=== PATIENT | female | born 1995 | race Two or more races ===

== ENCOUNTER 2024-09-14 18:08 | Emergency (ER) | payer BC, MEDICAID, SELFPAY ==
[2024-09-14 18:08] VITALS: BMI 26.2
[2024-09-14 18:18] VITALS: BP 122/79; PULSE 99; RESP 16; TEMP 37.6; O2SAT 98; BMI 25.4
--- NOTE | 2024-09-14 18:23 | XR_ITS ---
Examination: OB Transvaginal ultrasound of the pelvis, complete Technique: Transvaginal sonographic images pelvis performed using mclain scale imaging Exam date and time: September 14, 2024 1958 hrs. Indications: 7 week by history with vaginal bleeding and pelvic cramping today. Findings: Uterus 10.0 x 5.0 x 6.8 cm pole 0.8 cm corresponds to 6 week 6 day gestational age Cardiac motion 150 BPM Ovaries obscured by bowel gas Impression: Viable intrauterine gestation 6 weeks 6 days, no subchorionic hemorrhage
--- NOTE | 2024-09-14 18:23 | PD.EDRME ---
Rapid Medical Screening Exam [facility] Arrival date/time: 09/14/24 18:08 29F at approximately 7 weeks and with no significant PMH presents to ED with 1 day of pelvic cramping and vaginal bleeding. Chief Complaint: Vaginal Bleeding Vital signs: Vital Signs Temperature 99.6 F 09/14/24 18:18 Pulse Rate 99 09/14/24 18:18 Respiratory Rate 16 09/14/24 18:18 Blood Pressure 122/79 09/14/24 18:18 Pulse Oximetry (%) 98 09/14/24 18:18 Oxygen Delivery Method Room Air 09/14/24 18:18
[2024-09-14 18:38] LABS: Basophils # (Auto) 0.1 Thou/mm3 (0.0-0.2); Basophils % (Auto) 1 % (0-2.5); Eosinophils # (Auto) 0.2 Thou/mm3 (0.0-0.5); Eosinophils % (Auto) 2 % (0-10); Hematocrit 36.6 % (36.0-46.0); Hemoglobin 12.4 g/dL (12.0-16.0); Immature Granulocytes % (Auto) 1 % (0-0); Immature Granulocytes Auto 0.05 Thou/mm3 (0.00-0.00); Lymphocytes # (Auto) 3.1 Thou/mm3 (1.0-4.8); Lymphocytes % (Auto) 28 % (10-50); Mean Corpuscular HGB Conc 33.9 g/dl (31.0-37.0); Mean Corpuscular Hemoglobin 28.6 pg (25.0-35.0); Mean Corpuscular Volume 85 fL (80-100); Monocytes # (Auto) 0.7 Thou/mm3 (0.0-0.8); Monocytes % (Auto) 7 % (0-12); Neutrophils # (Auto) 6.9 Thou/mm3 (1.8-7.7); Neutrophils % (Auto) 63 % (37-80); Nucleated Red Blood Cell % 0 /100 WBC (0); Platelet Count 326 Thou/mm3 (140-440); RDW Standard Deviation 43.9 fL (36.4-46.3); Red Blood Count 4.33 Miln/mm3 (4.00-5.20); White Blood Count 10.9 Thou/mm3 (3.6-11.0)
[2024-09-14 18:57] LABS: Alanine Aminotransferase 80 U/L (10-49); Albumin, Serum 4.7 gm/dL (3.5-5.0); Albumin/Globulin Ratio 1.7 (1.2-2.2); Alkaline Phosphatase 101 U/L (46-116); Anion Gap 7 (7-16); Aspartate Amino Transferase 58 U/L (0-34); BUN/Creatinine Ratio 9 Ratio (12-20); Bilirubin,Total 0.4 mg/dL (0.3-1.2); Blood Urea Nitrogen 6 mg/dL (9-23); Calcium 9.4 mg/dL (8.3-10.6); Calcium (Corrected) 9.4 mg/dL (8.5-10.1); Carbon Dioxide 24.1 mMol/L (20.0-31.0); Chloride 104 mMol/L (98-107); Creatinine (Component) 0.7 mg/dL (0.6-1.3); Estimated Creatinine Clearance 106.6 mL/min (>60); Globulin 2.8 gm/dL (2.3-3.5); Glucose 112 mg/dL (74-106); Osmolality,Calculated 268 (275-295); Potassium 3.8 mMol/L (3.4-5.1); Sodium 135 mMol/L (136-145); Total Protein 7.5 gm/dL (5.7-8.2); eGFR > 60 See Note
[2024-09-14 19:35] LABS: Collection Type, Urine Clean Catch
[2024-09-14 19:50] LABS: Beta HCG,Quantitative 57880 mIU/mL (<5.0)
[2024-09-14 20:02] LABS: Bilirubin,Urine Negative (Negative); Blood,Urine 3+ (Negative); Clarity,Urine Clear (Clear/Hazy); Color,Urine Colorless (Lt Yel-Yel); Glucose, Urine Negative (Negative); Ketones,Urine Negative (Negative); Leukocyte Esterase,Urine Negative (Negative); Nitrite,Urine Negative (Negative); PH,Urine 6.5 (5.0-7.0); Protein,Urine Negative (Neg - Trace); RBC,Urine 251 /hpf (0-3); Squamous Epithelial Cell,Urine 1 /hpf (0-5); Urobilinogen,Urine Negative mg/dL (0.0-1.0); WBC,Urine 14 /hpf (0-5)
[2024-09-14 20:04] LABS: Sperm,Urine Present
--- NOTE | 2024-09-14 21:24 | PD.EDVAGBL ---
ED OB Contraction Preg RMI/HPI General Chief complaint: Vaginal Bleeding Stated complaint: 7WKS PREG, VAG BLEED Time Seen by Provider: 09/14/24 18:25 Arrival date/time: 09/14/24 18:08 RME / HPI RME / HPI Narrative: 29-year-old female patient 5 para 2 2, about 7 weeks , came in for evaluation regarding vaginal bleeding. Onset of symptoms 4 PM today, severity of symptoms mild, patient only change 1 pad. Patient denies any pelvic pain. Denies any dizziness denies any other complaints no medications taken prior to arrival. Related Data Home Medications ?Medication ?Instructions ?Recorded ?Confirmed amitriptyline 25 mg tablet 25 mg PO HS 01/07/23 01/07/23 hydroxyzine HCl 25 mg tablet 25 mg PO DAILY 01/07/23 01/07/23 rizatriptan 10 mg tablet 10 mg PO Q2H PRN Pain 01/07/23 01/07/23 Allergies Allergy/AdvReac Type Severity Reaction Status Date / Time No Known Allergies Allergy Verified 09/14/24 18:10 Review of Systems Review of Systems Narrative Review of Systems: Review of system reviewed and within normal limits except mentioned in HPI ED Exam Narrative Physical exam: VITAL SIGNS: Reviewed. GENERAL APPEARANCE: Alert and interactive, follows commands, no acute distress, HEAD AND FACE: Non-traumatic. ENT: PERRL, pink conjunctivitis, eyelid no trauma, Mucous membrane moist. NECK: Supple, nontender, no nuchal rigidity. CHEST: No tenderness, no crepitus, no paradoxical movement, no retractions. LUNGS: Clear, well ventilated, symmetric, no rales, no wheezing, no ronchi, no stridor, good breath sounds bilaterally. HEART: Regular rate, regular rhythm, no murmur, no gallops. ABDOMEN: Soft, positive bowel sounds, nondistended, no guarding, nontender, no rebound, no masses, RECTAL: Deferred. GENITAL: Deferred. NEUROLOGICAL: Gross motor function intact sensory function intact, Appropriate for age. MUSCULOSKELETAL: low back nontender, full range of motion. EXTREMITIES: Nontender, full range of motion. SKIN: Color pink, dry, no rash, no lacerations, no abrasions, no contusions. LYMPHATICS: Deferred. Course Quality Measures none Orders Category Date Time Status US OB transvaginal Stat Exams 09/14/24 18:23 Taken ABO/RH Type Stat Lab 09/14/24 18:31 Completed Beta HCG,Quantitative Stat Lab 09/14/24 18:31 Completed CBC Stat Lab 09/14/24 18:31 Completed CMP [Comprehensive Metabolic Panel] Stat Lab 09/14/24 18:31 Completed UA [Urinalysis] Stat Lab 09/14/24 19:23 Completed Urine Culture Stat Lab 09/14/24 18:23 Received Vital Signs Vital signs: Vital Signs Temperature 99.6 F 09/14/24 18:18 Pulse Rate 99 09/14/24 18:18 Respiratory Rate 16 09/14/24 18:18 Blood Pressure 122/79 09/14/24 18:18 Pulse Oximetry (%) 98 09/14/24 18:18 Oxygen Delivery Method Room Air 09/14/24 18:18 Vaginal Bleeding MDM Narrative MDM Narrative: 29-year-old female patient 5 para 2 2, about 7 weeks , came in for evaluation regarding vaginal bleeding. Onset of symptoms 4 PM today, severity of symptoms mild, patient only change 1 pad. Patient denies any pelvic pain. Denies any dizziness denies any other complaints no medications taken prior to arrival. Laboratory workup all came back unremarkable. Patient ultrasound of the showed single live intrauterine about 7 weeks and 5 days old, heart rate of 153 bpm. Results discussed with the patient. Currently patient told me that her bleeding completely stopped prior to discharge. Patient data External records reviewed:: None Clinical information provided by:: none Social determinants that could affect healthcare access:: none Patient has the following chronic illnesses:: None How is presenting disease/condition affected by chronic disease/condition?: no chronic disease Evaluation data The following diagnostics were reviewed and interpreted by me:: lab results and radiology exam(s) Lab and/or radiology exams considered but not ordered:: None Interpretation Summary: Laboratory workup all came back unremarkable. Patient ultrasound of the showed single live intrauterine about 7 weeks and 5 days old, heart rate of 153 bpm Medications / Prescriptions Medications or Prescriptions considered but not ordered:: None Medication administrations:: None Consultations Consultation(s) initiated? (list below): No Diagnosis Vaginal Bleeding Differential Diagnosis: missed , threatened , incomplete and vaginal bleeding Most likely diagnosis given after review of the tests above:: Threatened Admission Indicated Admission indicated?: not indicated Admission Request Was there a request for admission?: No Disposition Plan Disposition Plan: Discharge Discharge Attestation Discharge Attestation: The patient was given an opportunity to ask questions and understood the discharge instructions. Discharge instructions specifically effects, indications for sooner follow up or return to the emergency department, and the expected course of current diagnosis. Patient condition: Stable Discharge Plan Plan Patient Disposition: HOME (Self Care) Disposition Comment: stable Prescriptions/Referrals Prescriptions/Med Rec: No Action rizatriptan 10 mg Tablet 10 mg PO Q2H PRN (Reason: Pain) Rx Instructions: do not exceed 3 doses per 24 hrs amitriptyline 25 mg Tablet 25 mg PO HS hydroxyzine HCl 25 mg Tablet 25 mg PO DAILY Referrals: Jacobo Dewey PA-C [Primary Care Provider] - In 1 week Problem List Clinical Impression: Threatened , Vaginal bleeding affecting early Patient/Caregiver Discharge Instructions Discharge Activity: activity as tolerated Education Materials: ED Possible Miscarriage ... Additional Instructions: Thank you for the opportunity for serving you today. You are stable for discharged . 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
[2024-09-14 21:28] VITALS: BP 118/72; PULSE 76; RESP 18; TEMP 36.7; O2SAT 99
== END 2024-09-14 21:29 | disposition home or self-care (01) ==
PROVIDERS: Physician Assistant; Emergency Provider Emergency Medicine; PCP Physician Assistant
DX: O20.0 Threatened abortion (principal); Z3A.01 Less than 8 weeks gestation of pregnancy
CPT/HCPCS: 36415; 76817; 80053; 81001; 84702; 85025; 86900; 86901; 87086; 99284

== ENCOUNTER 2024-12-05 12:14 | Inpatient (IN) | payer OTHER, MEDICAID, SELFPAY ==
[2024-12-05] VITALS (40 sets, daily range): BP systolic 80–130; BP diastolic 45–76; PULSE 82–105; RESP 12–19; TEMP 36.2–37.1; O2SAT 98–100; BMI 27.4
--- NOTE | 2024-12-05 14:11 | PD.EDPREG ---
ED OB Contraction Preg RMI/HPI General Chief complaint: OB/Uterine Contractions Stated complaint: 18 weeks OB, , leaking fluid Time Seen by Provider: 12/05/24 12:23 Arrival date/time: 12/05/24 12:14 RME / HPI RME / HPI Narrative: DR. BORGES MAIN ED EVALUATION: 29 year old female presents to the Emergency Department with complaints of palpitations and something moving inside her vagina. Patient is 18 weeks and 5 days ; 5, para 2, abortus 2. She states that 8 days ago, she was seen by Dr. Ott and had a bulging sac and sent to [facility] by Dr. Ott for placenta previa too; however at [facility] they told her she did not have placenta previa and discharged her home and talked about termination of . Today, she feels like something is stuck in her vaginal and like feels movement; she also has some leaking/ discharge but no vaginal bleeding. No fevers or chills. No contractions. No injury or other symptoms. Related Data Home Medications ?Medication ?Instructions ?Recorded ?Confirmed amitriptyline 25 mg tablet 25 mg PO HS 01/07/23 01/07/23 hydroxyzine HCl 25 mg tablet 25 mg PO DAILY 01/07/23 01/07/23 rizatriptan 10 mg tablet 10 mg PO Q2H PRN Pain 01/07/23 01/07/23 cephalexin 500 mg capsule mg 12/05/24 folic acid 1 mg tablet 1 mg PO QDAY 12/05/24 12/05/24 vitamin with calcium tab PO Q24H 12/05/24 no.72-iron 27 mg-folic acid 1 mg tablet (WesTab Plus) Allergies Allergy/AdvReac Type Severity Reaction Status Date / Time No Known Allergies Allergy Verified 12/05/24 17:06 Review of Systems Review of Systems Systems Reviewed: All systems reviewed, normal except as documented Narrative Review of Systems: GEN: No fever, no chills, no weight loss EYES: No discharge, no visual changes, no pain HEENT: No ear pain, no congestion, no sore throat PULM: No shortness of breath, no cough, no congestion CV: No chest pain, no dyspnea on exertion, + palpitations GI: No nausea, no vomiting, no diarrhea, no pain, no constipation : No frequency, no urgency and no dysuria + vaginal discharge/ something stuck (see HPI) MUSC/SKEL: No joint pain, no back pain SKIN: No rash PSYCH: No hallucinations, no depression HEME/LYMPH: No easy bleeding or bruising tendencies NEURO: No weakness, no headache Past Medical History Past Medical History NEUROLOGIC: Positive Neurological Disorders and Migraine REPRODUCTIVE: Positive Previous Pregnancies MUSCULOSKELETAL: Positive Carpal Tunnel Syndrome PSYCHO/SOCIAL: Positive Depression and Anxiety OTHER HISTORY: Positive Hospitalization and Blood Transfusions Family History FAMILY HISTORY: Positive Family Cardiac Disorders and Family Surgery Surgical History SURGICAL: Positive Section Social History SMOKING STATUS: Never smoker SUBSTANCE USE: does not use ALCOHOL: Never ED Exam Narrative Physical exam: Physical Exam:? General:?? ? The vital signs were reviewed. ? ? The patient is non-toxic, in no apparent distress and appears healthy with a patent airway, no respiratory distress and has no apparent circulatory problems. Head & Scalp:?? ? Normocephalic, atraumatic. Face:?? ? Appears normal and is without lesions, deformity. Ears:??? Left external pinna appears normal. ? ? Right external pinna appears normal. Eyes:?? ? The sclera is anicteric.? No obvious photophobia. ? ? The Left and Right Orbit/Lid/Conjunctiva appears normal without swelling, discoloration or injection. Nose: ? ? The nose is without deformity, discharge or tenderness; Throat: ? ? Appears normal.? The mucous membranes are pink and moist without exudates, redness or mass seen.? The tongue appears normal. Neck: The neck is supple and no apparent mass or adenopathy. Chest: The chest wall is normal in size and symmetry and has no chest wall tenderness or crepitus. ? ? The patient displays normal ventilator effort without retractions, accessory muscle use and has adequate air movement bilaterally with no wheezes and no rales. ? Cardiovascular: Regular rate and rhythm; No murmurs, rubs, or gallops; Gastrointestinal: The abdomen appears normal.? No obvious hernias or mass. The abdomen is soft and benign, non-distended, with no pain, no guarding and no rebound tenderness.? Bowel sounds are present and normal sounding.? No CVA tenderness. Genitourinary: Deferred to Dr. Ott. Back/Spine: Extremities/Musculoskeletal/lymphatic:? ? ? The bilateral upper and lower extremities are warm. There is no evidence of arterial? insufficiency. There is no evidence of venous insufficiency/edema. The patient spontaneously moves bilateral upper and lower extremities with no pain and no limitation of movement.? There is no apparent, injury or trauma. Skin:? The skin is warm, dry and intact.? No rashes. No petechia. No purpura. No abnormal bruising.? The color is appropriate with no cyanosis. Mental status/Psychiatric: Mental status is appropriate for age. The patient has no apparent delusions, visual hallucinations, no apparent audible hallucinations. The patient has no apparent suicidal thoughts/ideation and no apparent homicidal thoughts/ideation. Neurological:? The patient is awake, alert, interactive, cordial, cooperative and is oriented to name and situation. The patient follows commands and answers historical question with no impairment.?? There is no visual disturbance apparent.? The pupils are equal and reactive bilaterally with normal eye movements and no diplopia The bilateral upper and lower extremities have normal strength, normal range of motion and normal functioning. The gait, station and balance appears? to be baseline with no acute change Course Quality Measures none Orders Category Date Time Status US OB >= 14 weeks Fetus Stat Exams 12/05/24 15:17 Completed CBC Stat Lab 12/05/24 15:35 Completed Comprehensive Metabolic Panel Stat Lab 12/05/24 15:35 Completed PT [Prothrombin Time with INR] Stat Lab 12/05/24 15:35 Completed PTT [Partial Thromboplastin Time] Stat Lab 12/05/24 15:35 Completed Red Blood Cells Stat Lab 12/05/24 15:35 Results Type and Screen Stat Lab 12/05/24 15:35 Results Sodium Chloride 0.9% 1000 ml [Ns] 1,000 ml Med 12/05/24 15:30 Active IV 150 mls/hr Vital Signs Vital signs: Vital Signs Temperature 98.7 F 12/05/24 12:31 Pulse Rate 103 H 12/05/24 12:31 Respiratory Rate 18 12/05/24 12:31 Blood Pressure 119/73 12/05/24 12:31 Pulse Oximetry (%) 98 12/05/24 12:31 Oxygen Delivery Method Room Air 12/05/24 12:31 OB/Uterine Contractions MDM Narrative MDM Narrative:: I, Sharda Jarrett am scribing for and in the presence of Dr. Borges. The patient 29-year-old whose 18 weeks 5 days by recent ultrasound who has a threatened second trimester now has a feeling of something in her vaginal vault moving and comes in by request of her OB Dr. Dr Ott. Patient has no fever vomiting no pain no contractions is aware that she is about to have a miscarriage. After initial evaluation I went and called Dr Ott who stated that the patient was to be admitted straight to OB that he made a special request for that to happen even though she is under 20 weeks. Later they called back stating that OB was quite busy and that we would get the labs started down in the ER which were then done and the white count came back at 13,000 hemoglobin 11.1. PT/INR within normal limits electrolytes sodium 135 otherwise negative. BUN 5 creatinine 0.5. She is O+. Ultrasound came down to the department found that the there is no amniotic fluid the legs are in the vaginal cervix and heart beats proximal 173. Patient then later went up to OB for further care by Dr Ott. Note that he plan to do the pelvic exam and that was deferred to him. Patient data External records reviewed:: [facility] [place] previous records (Reviewed last ED visit dated 09/14/24, discharged with the following: Threatened ) Clinical information provided by:: patient and spouse Social determinants that could affect healthcare access:: none Patient has the following chronic illnesses:: Denies any PMHx, surgeries, daily medications, or known allergies. Patient is 18 weeks and 5 days ; 5, para 2, abortus 2. How is presenting disease/condition affected by chronic disease/condition?: no chronic disease Evaluation data The following diagnostics were reviewed and interpreted by me:: other (specify) (none) Lab and/or radiology exams considered but not ordered:: none Interpretation Summary: See above under MDM narrative. RADIOLOGY Procedure(s): US OB >= 14 weeks Fetus Accession Number(s): [id number] cc: Chemo Borges MD; Deshaun Contreras MD; NO PRIMARY/FAMILY,PHYSICIAN~ Examination: Complete OB ultrasound greater than 14 weeks Date and time of exam: December 05, 2024 1538 hours INDICATIONS: Premature rupture of membranes December 01, 2024, leaking amniotic fluid beginning 5 days ago Findings: Viable intrauterine single fetus with single amniotic sac presentation breech, legs in the cervix Cardiac motion 173 BPM Placenta anterior grade 2 Umbilical cord seen No amniotic fluid spine maternal left Cervix 4.6 cm (with bilateral legs in the cervix Ovaries obscured by bowel gas. Composite estimated gestational age based on BPD, head circumference, abdominal circumference, femur length is 17 weeks 6 days Estimated weight 219 g. Survey of intracranial anatomy, spinal anatomy, abdominal anatomy, four-chamber heart performed with no abnormalities identified. Impression: Viable intrauterine gestation breech presentation, legs in the cervix No amniotic fluid. Dictated By: Deshaun Contreras MD Medications / Prescriptions Medications or Prescriptions considered but not ordered:: none Medication administrations:: Medication Administration History Benzocaine (Benzo/Lano/Aloe (Dermoplast) 60 Gm Can) 1 spray TOP PRN PRN PRN Reason: PERINEAL DISCOMFORT Stop: 01/04/25 15:57 Fentanyl Citrate (Fentanyl Cit Inj 50 Mcg/Ml Amp 2ml) 50 mcg IVP Q1HR PRN PRN Reason: PAIN SCALE 4-6 (Moderate Stop: 12/10/24 15:57 Fentanyl Citrate (Fentanyl Cit Inj 50 Mcg/Ml Amp 2ml) 100 mcg IV Q2HR PRN PRN Reason: PAIN SCALE 7-10 (Severe Stop: 12/10/24 15:57 Sodium Chloride (Ns) 1,000 mls @ 150 mls/hr IV .Q6H40M [facility] Stop: 01/04/25 15:29 Tranexamic Acid (Tranexamic Acid Ivpb) 1,000 mg in 100 mls @ 200 mls/hr IV [id number] PRN PRN Reason: BLEEDING Oxytocin/Sodium Chloride (Pitocin 20 Units In Ns) 20 unit in 1,000 mls @ 125 mls/hr IV .Q8H [facility] Stop: 01/04/25 15:59 Sodium Chloride (Ns) 1,000 mls @ 100 mls/hr IV .Q10H [facility] Stop: 01/04/25 15:59 Last Admin: 12/05/24 16:42 Dose: 100 mls/hr Documented By: ML Ampicillin Sodium 2,000 mg/ (Sodium Chloride) 100 mls @ 100 mls/hr IV Q6HR [facility] Stop: 12/12/24 17:29 Last Admin: 12/05/24 17:29 Dose: 100 mls/hr Documented By: ML Azithromycin 500 mg/ Sodium (Chloride) 250 mls @ 250 mls/hr IV QDAY [facility] Stop: 12/12/24 17:20 Last Admin: 12/05/24 18:09 Dose: 250 mls/hr Documented By: ML Methylergonovine Maleate (Methylergonovine Inj 0.2 Mg/Ml Vial) 0.2 mg IM X1 PRN PRN Reason: Excessive Bleeding Misoprostol (Misoprostol 200 Mcg Tablet) 800 mcg MD X1 PRN PRN Reason: BLEEDING Oxytocin (Oxytocin Inj 10 Unit/Ml Vial) 10 unit IM X1 PRN PRN Reason: After placenta delivers Sumatriptan Succinate (Sumatriptan 25 Mg Tablet) 25 mg PO Q2HR PRN PRN Reason: HEADACHE (MIGRAINE) Stop: 01/04/25 17:11 Last Admin: 12/05/24 17:27 Dose: 25 mg Documented By: ML Discontinued Medications Ibuprofen (Ibuprofen Tab 400 Mg Tablet) 800 mg PO X1 ONE Stop: 12/05/24 15:59 Misoprostol (Misoprostol 200 Mcg Tablet) 400 mcg VAGINAL X1 ONE Stop: 12/05/24 17:12 Last Admin: 12/05/24 19:50 Dose: 400 mcg Documented By: MAR see above if any Consultations Consultation(s) initiated? (list below): Yes Consultation #1 (Physician, Specialty, Details): Discussed test HPI, PMHx, lab, radiology results and/or management with Dr. Ott. Dr. Ott recommended to send the patient to OB unit that they are waiting for her. Time: 14:40 Consultation #2 (Physician, Specialty, Details): Discussed case with Dr. Ott. Dr. Ott spoke to OB unit charge nurse, they are busy so OB unit will be delayed for now; we are going to do orders in ED and wait to take her upstairs to OB unit when there is a room. Time: 15:20 Diagnosis OB Contractions Differential Diagnosis: premature labor, pre-eclampsia and other (palpitations, sepsis) Most likely diagnosis given after review of the tests above:: As noted below. Admission Indicated Admission indicated?: indicated Explain why admission is indicated or not indicated:: To the OB unit Admission Request Was there a request for admission?: Yes Admission Attestation Admission request attestation: Discussed case with [] from Hospitalist service regarding admission. Discussed patients ED course, exam findings, labs, and radiology results. The Hospitalist [agrees,declines] to accept the patient for admission. Disposition Plan Disposition Plan: Admit Discharge Plan Plan Patient Disposition: Admit Acute Care w/in Hospital Problem List Clinical Impression: Premature labor in second trimester, Premature rupture of membranes
--- NOTE | 2024-12-05 15:17 | XR_ITS ---
Examination: Complete OB ultrasound greater than 14 weeks Date and time of exam: December 05, 2024 1538 hours INDICATIONS: Premature rupture of membranes December 01, 2024, leaking amniotic fluid beginning 5 days ago Findings: Viable intrauterine single fetus with single amniotic sac presentation breech, legs in the cervix Cardiac motion 173 BPM Placenta anterior grade 2 Umbilical cord seen No amniotic fluid spine maternal left Cervix 4.6 cm (with bilateral legs in the cervix Ovaries obscured by bowel gas. Composite estimated gestational age based on BPD, head circumference, abdominal circumference, femur length is 17 weeks 6 days Estimated weight 219 g. Survey of intracranial anatomy, spinal anatomy, abdominal anatomy, four-chamber heart performed with no abnormalities identified. Impression: Viable intrauterine gestation breech presentation, legs in the cervix No amniotic fluid.
[2024-12-05 15:46] LABS: Basophils % (Auto) 0 % (0-2.5); Eosinophils % (Auto) 0 % (0-10); Hematocrit 32.7 % (36.0-46.0); Hemoglobin 11.1 g/dL (12.0-16.0); Immature Granulocytes % (Auto) 1 % (0-0); Immature Granulocytes Auto 0.11 Thou/mm3 (0.00-0.00); Lymphocytes % (Auto) 15 % (10-50); Mean Corpuscular HGB Conc 33.9 g/dl (31.0-37.0); Mean Corpuscular Hemoglobin 30.1 pg (25.0-35.0); Mean Corpuscular Volume 89 fL (80-100); Monocytes # (Auto) 0.5 Thou/mm3 (0.0-0.8); Monocytes % (Auto) 4 % (0-12); Neutrophils # (Auto) 10.3 Thou/mm3 (1.8-7.7); Neutrophils % (Auto) 80 % (37-80); Nucleated Red Blood Cell % 0 /100 WBC (0); Platelet Count 314 Thou/mm3 (140-440); RDW Standard Deviation 44.2 fL (36.4-46.3); Red Blood Count 3.69 Miln/mm3 (4.00-5.20)
[2024-12-05 16:03] LABS: Alanine Aminotransferase 44 U/L (10-49); Albumin, Serum 4.1 gm/dL (3.5-5.0); Albumin/Globulin Ratio 1.3 (1.2-2.2); Alkaline Phosphatase 134 U/L (46-116); Anion Gap 11 (7-16); Aspartate Amino Transferase 42 U/L (0-34); BUN/Creatinine Ratio 10 Ratio (12-20); Bilirubin,Total 0.3 mg/dL (0.3-1.2); Blood Urea Nitrogen 5 mg/dL (9-23); Calcium 9.3 mg/dL (8.3-10.6); Calcium (Corrected) 9.3 mg/dL (8.5-10.1); Carbon Dioxide 23.1 mMol/L (20.0-31.0); Chloride 101 mMol/L (98-107); Creatinine (Component) 0.5 mg/dL (0.6-1.3); Estimated Creatinine Clearance 148.8 mL/min (>60); Globulin 3.1 gm/dL (2.3-3.5); Glucose 123 mg/dL (74-106); Osmolality,Calculated 268 (275-295); Potassium 3.5 mMol/L (3.4-5.1); Sodium 135 mMol/L (136-145); Total Protein 7.2 gm/dL (5.7-8.2); eGFR > 60 See Note
--- NOTE | 2024-12-05 16:05 | PD.LDHP ---
Documentation for date of: 12/05/24 OB Labor/Induct. HPI History of Present Illness History of sections: Yes History of present illness: Dictated on STAT line #9 in [employer]: [id number] Past Medical History Surgical History SURGICAL: Positive Section Meds Home Medications and Allergies Home Medications ?Medication ?Instructions ?Recorded ?Confirmed ?Type amitriptyline 25 mg tablet 25 mg PO HS 01/07/23 01/07/23 History hydroxyzine HCl 25 mg tablet 25 mg PO DAILY 01/07/23 01/07/23 History rizatriptan 10 mg tablet 10 mg PO Q2H PRN Pain 01/07/23 01/07/23 History Allergies Allergy/AdvReac Type Severity Reaction Status Date / Time No Known Allergies Allergy Verified 12/05/24 12:19 OB Exam Physical Exam Vital signs: Temp Pulse Resp BP Pulse Ox O2 Del Method 98.3 F 96 16 117/68 98 Room Air 12/05/24 14:47 12/05/24 14:47 12/05/24 14:47 12/05/24 14:47 12/05/24 14:47 12/05/24 14:47 OB Results Labs 12/05/24 15:35 12/05/24 15:35 Labs: Short CBC 12/05/24 Range/Units 15:35 WBC 13.0 H (3.6-11.0) Thou/mm3 Hgb 11.1 L (12.0-16.0) g/dL Hct 32.7 L (36.0-46.0) % Plt Count 314 (140-440) Thou/mm3 BMP 12/05/24 15:35 Sodium 135 L Potassium 3.5 Chloride 101 Carbon Dioxide 23.1 BUN 5 L Creatinine 0.5 L Glucose 123 H Calcium 9.3 Liver Function 12/05/24 Range/Units 15:35 Total Bilirubin 0.3 (0.3-1.2) mg/dL AST 42 H (0-34) U/L ALT 44 (10-49) U/L Alkaline Phosphatase 134 H (46-116) U/L Albumin 4.1 (3.5-5.0) gm/dL
[2024-12-05 16:14] LABS: Partial Thromboplastin Time 26.3 Seconds (22.0-36.0); Prothrombin Time 10.6 Seconds (9.0-12.2)
--- NOTE | 2024-12-05 16:17 | PC.NURSE ---
Report given kenny Sewell RN in OB.
[2024-12-05] MEDS: SODIUM CHLORIDE 0.9% 1000 ML 1,000 ML 100 ML IV (16:42)
--- NOTE | 2024-12-05 17:16 | PD.LDPN ---
Documentation for date of: 12/05/24 OB Labor Progress Note Pain Control Comments: Migraine headache desires sumatriptan Pelvic Exam Comments: See H and P Assessment and Plan Comments: Inevitable at 18 weeks nonviable fetus. Oligohydramnios PPROM Elevated WBC Prior C/S Discussed options: Expectant Management v. Misoprostal to induce labor and delivery. Discussed low risk of uterine rupture with Misoprostal vaginally at 18 weeks and patient agrees to receive Misoprostal.
[2024-12-05] MEDS: SUMAtriptan 25 MG TABLET PO (17:27)
[2024-12-05] MEDS: Ampicillin Inj 2,000 MG in SODIUM CHLORIDE 0.9% (P) 100 ML 100 MG IV (17:29)
[2024-12-05] MEDS: AZITHROMYCIN INJ 500 MG in SODIUM CHLORIDE 0.9% 250 ML 250 ML 250 MG IV (18:09)
[2024-12-05] MEDS: MISOPROSTOL 200 mCg TABLET 400 MCG VAGINAL (19:50)
--- NOTE | 2024-12-05 23:24 | SUR.PHASEI ---
2324: Pt. AAOx4, vitals stable, breathing unlabored, no complaint of pain or nausea, vaginal packing in place, ABD Pad in place with minimal amount of blood, report received from MD [employer] [facility].
[2024-12-05] MEDS: ACETAMINOPHEN IVPB 1,000 MG/100 ML VIAL 250 MG IV (23:37)
[2024-12-05] MEDS: fentaNYL CIT INJ 50 mCg/ML AMP 2ML 25 MCG IVP (23:54)
--- NOTE | 2024-12-05 23:54 | PD.GYNPROC ---
Operative Note - CODE AND TEST CLERK Procedure Date of procedure: 12/05/24 Procedure Performed: Uterine curettage Packing of uterus with Curlex roll Indication: Retained placenta Pre-Op diagnosis: Retained placenta Post-Op diagnosis: Retained placenta Anesthesia type: General Procedure description: Uterine curettage Placement of Curlex roll for uterine packing Fluids: crystalloid and blood Specimen: other Estimated blood loss (ml): 500 Findings: Retained placenta Complications: none Narrative: After delivery of nonviable 18-week fetus the patient was observed for 30 minutes and the placenta did not deliver. Her bleeding became excessive after 30 minutes and she became hypotensive and tachycardic and was rushed to the operating room where she was placed in the supine position on the operating room table and she underwent induction of general anesthesia she was then placed in the dorsolithotomy position she was prepped and draped the cervix was dilated 5 cm. Using the banjo curette uterine cavity was curetted and the placenta came out and pieces. After the uterine cavity curetted cleanly without any remaining products of conception the uterus was packed with Kerlix roll. She received Pitocin, Methergine and TXA. She received a unit of packed red blood cells intraoperatively. Plan is to transfuse the second unit in the postanesthesia care unit. She was reversed from general anesthesia in the supine position and transferred to the recovery room in stable condition she tolerated the procedure well counts were correct. I discussed with the patient's family the intraoperative findings expectation for recovery all questions answered and dictation Dr. Barrett thank for much Surgical staff Anesthesiologist Dr Bell Operation Date: 12/05/24 23:30 <No data on this case meets the specified criteria> Diagnosis Discharge Diagnosis (1) Retained products of conception after miscarriage: Status: Acute Problem List Completed Was Problem List Reviewed/Reconciled?: Yes
[2024-12-06] VITALS (16 sets, daily range): BP systolic 90–104; BP diastolic 54–68; PULSE 74–90; RESP 16–20; TEMP 36.2–37.5; O2SAT 97–99
--- NOTE | 2024-12-06 00:06 | PD.LDDS ---
DS: Providers Provider Date of admission: 12/05/24 15:58 Primary care physician: Physician No Primary/Family Admitting Provider: Angel Ott MD Attending Provider on Admission: Angel Ott MD Attending Provider on DC: Angel Ott MD Discharging Provider: Angel Ott MD DS: Diagnosis Problem List Completed Was Problem List Reviewed/Reconciled?: Yes Summary/Hosp Course Brief History: Dictated on STAT line #9 in [employer]: [id number] Peripartum Data Procedures: Procedures Operation Date: 12/05/24 23:30 <No data on this case meets the specified criteria> Time Spent with Patient Time attestation: Total time spent providing and/or coordinating discharge services: Exam Vital Signs Temp Pulse Resp BP Pulse Ox O2 Del Method O2 Flow Rate 97.2 F 90 19 104/59 L 99 Room Air 4 12/05/24 23:58 12/05/24 23:58 12/05/24 23:58 12/05/24 23:58 12/05/24 23:58 12/05/24 20:30 12/05/24 23:43 Discharge Plan Plan Patient Disposition: HOME (Self Care) Patient condition on transfer: Stable Prescriptions/Referrals Prescriptions/Med Rec: Continued rizatriptan 10 mg Tablet 10 mg PO Q2H PRN (Reason: Pain) Rx Instructions: do not exceed 3 doses per 24 hrs amitriptyline 25 mg Tablet 25 mg PO HS hydroxyzine HCl 25 mg Tablet 25 mg PO DAILY WesTab Plus 27 mg iron- 1 mg tablet PO Q24H Patient Comments: take 1 tablet by mouth once daily Discontinued cephalexin 500 mg capsule Patient Comments: take 1 capsule by mouth four times a day for 7 days folic acid 1 mg tablet 1 mg PO QDAY Patient Comments: take 1 tablet by mouth once daily Referrals: No Primary/Family,Physician [Primary Care Provider] - Patient/Caregiver Discharge Instructions Discharge Activity: activity as tolerated Other Discharge Activity Instructions:: Follow up office 1 week. Print Language: Estonian Stand Alone Forms: [facility] Award Info., Patient Portal Info Letter Discharge Order Discharge Orders: Discharge (Routine); Ordered 12/07/24 Ordered By: Angel Ott Planned Discharge Date 12/07/24
--- NOTE | 2024-12-06 00:23 | SUR.PHASEI ---
0023: Pt. AAOx4, vitals stable, breathing unlabored, complaint of pain 2/10, pt. states pain is tolerable, no complaint of nausea, peripad in place with minimal blood, bocanegra catheter in place draining clear yellow urine, pt. tolerated bites of ice chips well, gave report to Denae MELTON prior to transfer to room 460. Per MD Ott, have 2U more PRBC on standby, but do not give tonight. 2 units of PRBC Transfused in OR/PACU, 2 units PRBC left (but on standby)
--- NOTE | 2024-12-06 00:43 | PC.NURSE ---
0025: PATIENT ARRIVED TO L&D UNIT ROOM 460 FROM MAIN OR, PACU X1HOUR. PATIENT AWAKE ALERT ORIENTED
[2024-12-06] MEDS: OXYTOCIN in NS 20 units 20 UNIT/1,000 ML BAG 125 UNIT IV (01:43)
[2024-12-06] MEDS: IBUPROFEN TAB 400 MG TABLET 800 MG PO ×2 (02:17→18:46)
--- NOTE | 2024-12-06 02:46 | PC.NURSE ---
2148: Demise, male born via , HR:0, RR:0, wrapped x1 baby blanket, transferred to mother chest. 2153: : 0/0 5: Male, transferred to [facility] d/t mother reporting she did not feel good. 2315:Male, in [facility], measurements and weight performed. Length: 8.75in, Head:12.75cm, Chest:12.25cm, Abdomen: 12cm, Weight: 215gm. 2323: [facility] called, notified of demise/ male born via , spoke to Zoran Gracia, ZHEN#[id number]
[2024-12-06] MEDS: METHYLERGONOVINE 0.2 MG TABLET PO ×2 (06:04→14:40)
[2024-12-06] MEDS: ceFAZolin 2 GM in SODIUM CHLORIDE 0.9% 100 ML IV (06:06)
[2024-12-06 06:07] LABS: Basophils % (Auto) 0 % (0-2.5); Eosinophils % (Auto) 0 % (0-10); Hematocrit 32.1 % (36.0-46.0); Hemoglobin 10.9 g/dL (12.0-16.0); Immature Granulocytes % (Auto) 2 % (0-0); Immature Granulocytes Auto 0.26 Thou/mm3 (0.00-0.00); Lymphocytes # (Auto) 1.5 Thou/mm3 (1.0-4.8); Lymphocytes % (Auto) 9 % (10-50); Mean Corpuscular Hemoglobin 29.5 pg (25.0-35.0); Mean Corpuscular Volume 87 fL (80-100); Monocytes # (Auto) 0.2 Thou/mm3 (0.0-0.8); Monocytes % (Auto) 1 % (0-12); Neutrophils # (Auto) 15.2 Thou/mm3 (1.8-7.7); Neutrophils % (Auto) 89 % (37-80); Nucleated Red Blood Cell % 0 /100 WBC (0); Platelet Count 266 Thou/mm3 (140-440); RDW Standard Deviation 45.1 fL (36.4-46.3); Red Blood Count 3.69 Miln/mm3 (4.00-5.20); White Blood Count 17.2 Thou/mm3 (3.6-11.0)
[2024-12-06 06:33] LABS: Alanine Aminotransferase 39 U/L (10-49); Albumin, Serum 3.4 gm/dL (3.5-5.0); Albumin/Globulin Ratio 1.3 (1.2-2.2); Alkaline Phosphatase 111 U/L (46-116); Anion Gap 9 (7-16); Aspartate Amino Transferase 43 U/L (0-34); BUN/Creatinine Ratio 14 Ratio (12-20); Bilirubin,Total 0.5 mg/dL (0.3-1.2); Blood Urea Nitrogen 7 mg/dL (9-23); Calcium 8.2 mg/dL (8.3-10.6); Calcium (Corrected) 8.7 mg/dL (8.5-10.1); Carbon Dioxide 21.1 mMol/L (20.0-31.0); Chloride 105 mMol/L (98-107); Creatinine (Component) 0.5 mg/dL (0.6-1.3); Estimated Creatinine Clearance 148.8 mL/min (>60); Globulin 2.6 gm/dL (2.3-3.5); Glucose 122 mg/dL (74-106); Osmolality,Calculated 269 (275-295); Potassium 4.1 mMol/L (3.4-5.1); Sodium 135 mMol/L (136-145); eGFR > 60 See Note
--- NOTE | 2024-12-06 08:19 | ESHP_ITS ---
RE: YOLANDA HDZ : 1995 DATE OF ADMISSION: 12/05/2024 HISTORY OF PRESENT ILLNESS: This is a 29-year-old 5 para 2-0-2-2 with due date of 05/03 with intrauterine at 18 weeks and 5 days who presents to the emergency room complaining of leaking and feeling something moving in her vagina. On exam, she is noted to have a bulging amniotic sac extending into the distal vagina with footling breech presentation. The bag appears to be intact. The patient has a history of cervical incompetence and was seen at [facility] on 11/27/2024. She underwent an evaluation at [facility] due to cervix with advanced dilatation of 4 cm. At the [facility], they did an ultrasound which showed that she had an anterior placenta, but it was not low lying and it was not placenta previa. Also, they said that there was no placenta accreta. The patient denies any vaginal bleeding. She denies feeling any cramping. ALLERGIES: NO KNOWN DRUG ALLERGIES. MEDICATIONS: multivitamin 1 p.o. daily. PAST MEDICAL HISTORY: LEEP cone biopsy of the cervix in 2015, endometriosis, past medical history of migraine headaches. FAMILY HISTORY: Brain cancer, lung cancer, migraine headaches, hypertension, kidney disease. OBSTETRIC HISTORY: 2014, 40-week normal vaginal delivery, 6 pound 11 ounce female. No complications. 2016, 39 weeks delivery, 8 pound 4-ounce female complicated by placental abruption. 10/2022, 5 weeks spontaneous AB with D and C x2. 03/2024, 18-week premature rupture of membranes, chorioamnionitis, delivery of nonviable infant followed by manual placental removal and uterine curettage. PAST SURGICAL HISTORY: delivery 04/2017, D and C 03/2024, D and C 10/2022. REVIEW OF SYSTEMS: She denies any fever, chest pain, palpitations, shortness of breath, or lower extremity pain. PHYSICAL EXAMINATION: VITAL SIGNS: Blood pressure 137/69, heart rate 88, respirations 18, temperature 98.2, weight 151 pounds. HEENT: Oropharynx and sclerae are clear. LUNGS: Clear to auscultation bilaterally. HEART: Regular rate and rhythm. ABDOMEN: Fundus at 20-week size. PELVIC: Intact bulging amniotic sac with palpable foot in the vaginal vault. EXTREMITIES: Nontender. SKIN: No gross rashes or lesions. NEUROLOGIC: No focal deficits. ASSESSMENT AND PLAN: Intrauterine at 18 weeks and 5 days inevitable . I discussed with the patient the nature of her condition and the recommended treatment plan, anticipate vaginal delivery, and if placenta does not deliver spontaneously, will be required to do a manual placenta removal and uterine curettage. The patient was made aware that although [facility] did not confirm Previa or Accreta, that there is a risk that she has persistent bleeding after delivery that might require placement of Bakri balloon or even hysterectomy to stop the bleeding. She has been made aware of the risks, complications, alternatives, and benefits of the proposed D and C, Bakri balloon, and hysterectomy if we needed to proceed to placental removal. She verbalized understanding and agrees. All questions answered. DT: 15:49:48 TT: 17:44:00 Ref: [id number] - TID: [id number]
[2024-12-06] MEDS: HYDROcodone/APAP 5/325 TABLET 1 TAB PO (08:22)
--- NOTE | 2024-12-06 13:25 | PC.SS ---
CUT ROLL MACHINE OPERATOR received nursing referral indicating that patient suffered demise at 19 weeks.? CUT ROLL MACHINE OPERATOR introduced self and role.? Present with patient was mother in law.? Patient gave permission for CUT ROLL MACHINE OPERATOR to discuss referral in presence of guest.? CUT ROLL MACHINE OPERATOR discussed basis of referral.? Patient confirmed demise.? Patient informed CUT ROLL MACHINE OPERATOR that this was second occurrence of condition.? Previous event occurred in .? Patient informed CUT ROLL MACHINE OPERATOR that was adjusting to the event.? Patient confirmed presence of depressive mood but not to the extent that is was causing the patient to not eat or sleep.? Patient denied presence of racing thoughts.? Patient stated that previous experience had prepared patient to some extent.? Patient confirmed support obtained from family members and spouse.? Patient relayed that she has 2 daughters ages 9 and 7 years old.? In addition to spouse, family and daughters; patient identified employment as source of support.? CUT ROLL MACHINE OPERATOR discussed with patient involvement with talk therapy.? Patient confirmed utilization of resource during previous event.? Patient to re-schedule counseling with [facility] behavioral health.? Patient denies current intent/plan of SI/HI.? CUT ROLL MACHINE OPERATOR provided patient with resources to include Warm line, Crisis line and [facility] mental health services.? Patient engaged and responsive during discussion.? CUT ROLL MACHINE OPERATOR provided update to bedside nurse.
[2024-12-06] MEDS: ceFAZolin/D5W 2 GM IV 2 GM/100 ML BAG IV (14:36)
--- NOTE | 2024-12-06 19:35 | PD.LDDELS ---
Data (Dow) Data Hx Section: Yes (x1) : 5 Para: 2 Term: 2 : 0 : 2 Delivery Data (Dow) Labor Data ROM Date: 12/01/24 ROM Time: 18:00 Rupture Type: SROM Amniotic Fluid: Clear Delivery Data EDC: 05/03/25 EDC calculated by:: LMP/early US confirmation Labor Onset Stage 1 Date: 12/05/24 Labor Onset Stage 1 Time: 21:00 Labor Onset Stage 2 Date: 12/05/24 Labor Onset Stage 2 Time: 21:20 Delivery Date: 12/05/24 Delivery Time: 21:49 Gestational age (weeks): 18 Gestational age (days): 5 Placenta Delivery Date: 12/05/24 Placenta Delivery Time: 23:00 Delivered by: Angel Ott Delivery nurse: Denae Marlow Other staff at delivery: Nurse Other staff at delivery: Nurse Other staff at delivery: Sylvia Berry Other staff at delivery: Rachel Daniel Delivery Method Delivery: Vaginal Delivery Type: Spontaneous Presentation: Footling Breech Anesthesia Type Primary Anesthesia: None Placenta Placenta Delivery: Manual Placenta Cultures Obtained: No Placenta Sent for Examination: Yes EBL Estimated blood loss (ml): 500 Additional Procedures Uterine curettage Uterine packing with Curlex Roll. Complications Complications: Retained placenta. Data (Dow) Data Gender: Male Infant Weight Grams: 215 1 Minute Total: 0 5 Minute Total: 0
--- NOTE | 2024-12-06 20:40 | ESPR_ITS ---
RE: YOLANDA HDZ : 1995 DATE OF SERVICE: 12/06/2024 SUBJECTIVE : Postop day #1. day #1. The patient denies any problem or complaints. She has had no excessive vaginal bleeding since the vaginal packing was placed after the placenta was removed. OBJECTIVE: Vital Signs: Blood pressure 103/68, heart rate 81, respirations 17, temperature 98.3, pulse oximetry 99% on room air. Abdomen: Nontender. Vaginal packing removed. No bleeding noted. Extremities: Nontender. ASSESSMENT: 1. Postop day #1, status post uterine curettage for retained placenta. 2. Status post uterine packing for hemorrhage. 3. Status post removal of packing with no excessive bleeding. PLAN: Observe until morning and discharge home status post transfusion of 2 units of packed red blood cells. Hemoglobin is 10.9. DT: 19:18:51 TT: 20:39:00 Ref: [id number] - TID: [id number]
[2024-12-07] VITALS: BP 94/58; PULSE 75; RESP 18; TEMP 36.7; O2SAT 98
[2024-12-07 04:00] VITALS: BP 94/56; PULSE 76; RESP 18; TEMP 36.8; O2SAT 98
--- NOTE | 2024-12-07 05:10 | ESPR_ITS ---
RE: YOLANDA HDZ : 1995 DATE OF SERVICE: 12/07/2024 S: This is postop day #2. The patient denies any problem or complain. She has had no significant vaginal bleeding since the uterine packing was removed yesterday. She is voiding and ambulating. She is tolerating regular diet. She is passing flatus. O: Vital Signs: Blood pressure 94/58, heart rate 75, respirations 18, temperature is 98.0, pulse ox is 98% on room air. Lungs: Clear to auscultation bilaterally. Heart: Regular rate and rhythm. Abdomen: Fundus is firm and nontender. Extremities: Nontender. A AND P: date #2 status post spontaneous vaginal delivery of a nonviable 18-week fetus status post uterine curettage and uterine packing for retained placenta and hemorrhage status post removal of uterine packing with resolution of hemorrhage. Discharge home, discharge instructions given. Follow up in the office in 6 weeks. DT: 04:03:39 TT: 05:08:00 Ref: [id number] - TID: [id number]
[2024-12-07 07:52] LABS: Fibrinogen 490 mg/dL (175-375); INR 0.9 (0.9-1.3)
[2024-12-07 08:00] VITALS: BP 93/56; PULSE 78; RESP 20; TEMP 37; O2SAT 98
--- NOTE | 2024-12-07 10:15 | PC.NURSE ---
Dr. Ott called made aware of depression screen score of 18, RN to order social service referral for pt to be cleared before going home.
--- NOTE | 2024-12-07 11:42 | PC.SS ---
ECOLOGY PROFESSOR conducted bedside contact with the patient to address nursing referral indicating elevated score on post- screening.? ECOLOGY PROFESSOR introduced self, role and basis of referral.? ECOLOGY PROFESSOR discussed with patient elevated score.? Patient relayed that elevated score due to recent occurrence of demise.? Patient stated that presence of depressed mood normal given circumstance.? Patient shared that although event traumatic will not impair daily functioning.? Patient denied loss of appetite and described obtaining adequate amount of sleep previous evening.? Plan is for the patient to discharge home.? Patient?s spouse will be home with the patient.? Patient?s two children will also be present today after school.? Patient denied current intent/plan of SI/HI.? Patient shared with ECOLOGY PROFESSOR plan to access mental health support from [facility] if needed.? Patient relayed to the ECOLOGY PROFESSOR possession of community resources to include Warm Line and Crisis Line that were provided by ECOLOGY PROFESSOR on 12-06-24.? Patient listed protective factors to include: family support, social connections, ability to access mental health and positive outlook for her future.? In addition to home support patient identified support from fellow employees.? Patient was responsive and engaged during discussion, maintained good eye contact.? ECOLOGY PROFESSOR updated bedside nurse.??
== END 2024-12-07 11:20 | disposition home or self-care (01) | DRG 770 ==
LOC: SERX 16:18 → SERHOLD 16:25 → S4SX 16:31 → S4NX 12-06 00:23
PROVIDERS: Admitting Provider Specialist; Emergency Provider Emergency Medicine; Visit Provider Specialist
PROC: 10D17ZZ Extraction of Products of Conception, Retained, Via Natural or Artificial Opening (ICD-10-PCS; CPT 58120; principal; 2024-12-05 23:30)
DX: O03.4 Incomplete spontaneous abortion without complication (principal); O41.02X0 Oligohydramnios, second trimester, not applicable or unspecified; O72.1 Other immediate postpartum hemorrhage; O99.354 Diseases of the nervous system complicating childbirth; Z3A.18 18 weeks gestation of pregnancy; O32.8XX0 Maternal care for other malpresentation of fetus, not applicable or unspecified; G43.909 Migraine, unspecified, not intractable, without status migrainosus; O34.219 Maternal care for unspecified type scar from previous cesarean delivery
CPT/HCPCS: 36415; 76805; 80053; 85025; 85384; 85610; 85730; 86850; 86900; 86901; 86923; A4217; J0131; J0290; J0456; J0689; J0690; J1100; J2210; J2371; J2405; J2590; J2704; J3010; J3490; J7030; J7050; P9016; S0191; A9270